=== PATIENT | female | born 1950 | race Hispanic/Latino ===

== ENCOUNTER 2020-09-28 18:26 | Outpatient (CLI) | payer MEDICARE, MEDICAID, SELFPAY ==
--- NOTE | ~2020-09-28 | XR_ITS ---
XR chest 2V DATE: 09/28/2020 18:49 INDICATION: Essential hypertension TECHNIQUE: PA and lateral views COMPARISON: 03/22/2018 two-view chest FINDINGS: Heart size is within normal range. Aortic calcification and tortuosity. No hilar or mediastinal enlargement. Minimal atelectasis or infiltrate in the left lower lung; otherw ise no pulmonary infiltrate or consolidation, pleural effusion or pulmonary vascular congestion or pn eumothorax. Dextroscoliosis of the thoracic spine. Diffuse osteopenia. IMPRESSION: Minimal infiltrate or atelectasis in the left lower lung; otherwise no active cardiopulmo nary disease Reviewed, dictated and finalized at location A. IMPRESSION: Minimal infiltrate or atelectasis in the left lower lung; otherwise no active cardiopulmonary disease
== END 2020-09-28 18:27 | disposition home or self-care (01) ==
LOC: ANHIMG 18:35
PROVIDERS: PCP Registered Nurse; Visit Provider Registered Nurse
DX: I10 Essential (primary) hypertension (principal); R91.8 Other nonspecific abnormal finding of lung field
CPT/HCPCS: 71046

== ENCOUNTER 2021-04-15 17:14 | Outpatient (CLI) | payer OTHER, SELFPAY ==
--- NOTE | ~2021-04-15 | US_ITS ---
EXAMINATION: US carotid duplex BI DATE: 04/15/2021 18:33 INDICATION: Carotid artery stenosis TECHNIQUE: Grayscale, color Doppler, and pulsed Doppler images of the cervical carotid arteries were obtained. The degree of vessel stenosis is placed in one of the following categories: normal, <50%, 5 0-69%, >=70% but less than near-occlusion, near-occlusion, or total occlusion. Note that percent sten osis relative to normal distal artery lumen diameter is indirectly measured from velocity measurement s as described by German, et al. Radiology 2003; [id number]:[id number]. COMPARISON: None. FINDINGS: RIGHT: The right common carotid artery (CCA) peak systolic velocity (PSV) is 63 cm/s. The right internal car otid artery (ICA) PSV is 107 cm/s. The right ICA end-diastolic velocity (EDV) is 23 cm/s. The right I CA/CCA PSV ratio is 1.7. Grayscale and color Doppler images yield an estimate of <50% diameter reduct ion from plaque in the ICA. The external carotid artery (ECA) PSV is 87 cm/s. There is antegrade flow in the right vertebral artery. LEFT: Stent is seen at the left common carotid artery extending into the proximal left internal carotid art onesimo The left CCA PSV is 54 cm/s. The left ICA PSV is 60 cm/s. The left ICA EDV is 21 cm/s. The left I CA/CCA PSV ratio is 1.1. Grayscale and color Doppler images yield an estimate of <50% diameter reduct ion from plaque in the ICA. The ECA PSV is 59 cm/s. There is antegrade flow in the left vertebral art onesimo. IMPRESSION: 1. <50% stenosis in the right internal carotid artery. 2. <50% stenosis in the stented left internal carotid artery. Reviewed, dictated and finalized at location H. R MATCHER
== END 2021-04-15 17:15 | disposition home or self-care (01) ==
LOC: ANHIMG 17:19
PROVIDERS: PCP Physician Assistant; Visit Provider Physician Assistant
DX: I65.23 Occlusion and stenosis of bilateral carotid arteries (principal)
CPT/HCPCS: 93880

== ENCOUNTER 2021-07-25 16:39 | Emergency (ER) | payer MEDICARE, MEDICAID, SELFPAY ==
[2021-07-25 16:52] VITALS: BP 179/89; PULSE 71; RESP 16; TEMP 36; O2SAT 100
--- NOTE | 2021-07-25 17:20 | PC.NURSE ---
pt left d/t wait time, didnt feel need to be here. encouraged to return if needed, pt agreeable
== END 2021-07-25 17:33 | disposition left against medical advice (07) ==
LOC: ANHED 17:29
PROVIDERS: PCP Physician Assistant
DX: I10 Essential (primary) hypertension (principal)
CPT/HCPCS: 99199

== ENCOUNTER 2021-07-31 17:55 | Outpatient (CLI) | payer MEDICARE, MEDICAID, SELFPAY ==
--- NOTE | ~2021-07-31 | XR_ITS ---
EXAMINATION: HAND-DEVORA ARTHRITIS 3+VIEWS DATE: 07/31/2021 18:20 INDICATION: Chronic bilateral hand pain, right greater than left. TECHNIQUE: Posteroanterior, lateral, and oblique views of the left and of the right hands as well as a ballcatchers view of both hands were obtained. COMPARISON: None. FINDINGS: Relatively symmetric pattern of polyarticular osteoarthritis of both hands, severe at the distal inte rphalangeal joints, moderate at the bilateral first carpometacarpal and at the right second and fifth and left second metacarpophalangeal joint and mild at the bilateral wrist, triscaphe and remaining m etacarpophalangeal and interphalangeal joints. Mild finger deformity right fifth distal interphalange al joint and mild radial angulation at the right third distal interphalangeal. No traumatic malalignm ent. No fracture. IMPRESSION: 1. Typical relatively symmetric pattern of polyarticular osteoarthritis at the bilateral hands and wr ists, severe at the distal interphalangeal joints. Reviewed, dictated and finalized at location B. IMPRESSION: 1. Typical relatively symmetric pattern of polyarticular osteoarthritis at the bilateral hands and wrists, severe at the distal interphalangeal joints.
== END 2021-07-31 17:56 | disposition home or self-care (01) ==
PROVIDERS: PCP Physician Assistant; Visit Provider Physician Assistant
DX: M79.641 Pain in right hand (principal); M19.042 Primary osteoarthritis, left hand; M19.041 Primary osteoarthritis, right hand
CPT/HCPCS: 73130

== ENCOUNTER 2021-10-09 18:12 | Outpatient (CLI) | payer MEDICARE, MEDICAID, SELFPAY ==
--- NOTE | ~2021-10-09 | XR_ITS ---
EXAM: XR knee RT 3V, XR knee LT 3V DATE: 10/09/2021 18:45 HISTORY: NO INJURY,CHRONIC PAIN THROUGHOUT RT KNEE . COMPARISON: None available. FINDINGS: Decreased mineralization. No fracture or dislocation. No lytic or blastic lesion. Moderate bilateral medial and mild bilateral lateral joint space narrowing. Bilateral mild patellar subluxati on. Mild-moderate tricompartmental osteophytosis, worse on the left. No erosion or periosteal change. Small bilateral knee joint effusions. 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 Reviewed, dictated and finalized at location K. 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
== END 2021-10-09 18:13 | disposition home or self-care (01) ==
PROVIDERS: PCP Physician Assistant; Visit Provider Physician Assistant
DX: M17.0 Bilateral primary osteoarthritis of knee (principal)
CPT/HCPCS: 73562

== ENCOUNTER 2022-07-14 18:19 | Outpatient (CLI) | payer MEDICARE, MEDICAID, SELFPAY ==
--- NOTE | ~2022-07-14 | XR_ITS ---
EXAM: XR hip BI wo pelvis DATE: 07/14/2022 18:40 HISTORY: BI HIP JOINT PAIN, CHRONIC PAIN . COMPARISON: None available. FINDINGS: Normal mineralization. No fracture or dislocation. No lytic or blastic lesion. Moderate na rrowing, subchondral sclerosis, and degenerative cyst formation in the right SI joint. The left SI luis int is normal. Mild osteitis pubis. Mild bilateral superior hip joint space narrowing. Degenerative c hanges in the lumbar spine. Minimal hip enthesopathy. No erosion or periosteal change. Soft tissues w ithin normal limits. IMPRESSION: Moderate right sacroiliitis. Mild bilateral hip osteoarthritis. Reviewed, dictated and finalized at location K.
== END 2022-07-14 18:20 | disposition home or self-care (01) ==
LOC: ANHIMG 18:24
PROVIDERS: PCP Physician Assistant
DX: M25.551 Pain in right hip (principal); M25.552 Pain in left hip; M46.1 Sacroiliitis, not elsewhere classified; M16.0 Bilateral primary osteoarthritis of hip
CPT/HCPCS: 73521

== ENCOUNTER 2023-07-27 16:17 | Outpatient (CLI) | payer MEDICARE, MEDICAID, SELFPAY ==
--- NOTE | ~2023-07-27 | MM_ITS ---
EXAMINATION: MM screening roselyn BI w evelyn HISTORY: Screening TECHNIQUE: Craniocaudal and mediolateral oblique 3-D tomosynthesis images were obtained and synthetic 2-D images were generated. CAD analysis was submitted and interpreted. COMPARISON: No prior mammogram is available for comparison at this institution. BREAST PARENCHYMAL COMPOSITION: There are scattered areas of fibroglandular density. FINDINGS: There is no evidence of suspicious mass, calcification, or architectural distortion to sugg est malignancy in either breast. There has been no suspicious interval change. IMPRESSION: 1. No mammographic evidence of malignancy. 2. Recommend routine screening mammography in one year. BI-RADS Category 1: Negative Reviewed, dictated and finalized at location B.
== END 2023-07-27 16:18 | disposition home or self-care (01) ==
PROVIDERS: PCP Physician Assistant; Visit Provider Physician Assistant
DX: Z12.31 Encounter for screening mammogram for malignant neoplasm of breast (principal)
CPT/HCPCS: 77063; 77067

== ENCOUNTER 2023-08-04 13:44 | Outpatient (CLI) | payer MEDICARE, MEDICAID, SELFPAY ==
--- NOTE | 2023-08-04 14:30 | NEURO_ITS ---
Impression: # Complains of numbness of fingers. Known diabetic. # Subtle evolving right Carpal Tunnel Syndrome. # No ulnar neuropathy. # Normal Needle/EMG exam. # Clinical correlation recommended. Nerve Conduction Studies Anti Sensory Summary Table Stim Site NR Peak (ms) P-T Amp (?V) Site1 Site2 Delta-P (ms) Dist (cm) Jimmy (m/s) Left Median Anti Sensory (2-3nd Digit) Wrist 2.7 59.0 Wrist 2-3nd Digit 2.7 14.0 52 Wrist 2.9 51.9 Wrist 2-3nd Digit 2.7 14.0 52 Right Median Anti Sensory (2-3nd Digit) Wrist 3.0 30.9 Wrist 2-3nd Digit 3.0 14.0 47 Wrist 3.0 37.2 Wrist 2-3nd Digit 3.0 14.0 47 Left Radial Anti Sensory (Base 1st Digit) Wrist 2.6 12.6 Wrist Base 1st Digit 2.6 0.0 Right Radial Anti Sensory (Base 1st Digit) Wrist 2.2 22.8 Wrist Base 1st Digit 2.2 0.0 Left Ulnar Anti Sensory (5th Digit) Wrist 2.8 39.8 Wrist 5th Digit 2.8 14.0 50 Right Ulnar Anti Sensory (5th Digit) Wrist 2.6 20.9 Wrist 5th Digit 2.6 14.0 54 Motor Summary Table Stim Site NR Onset (ms) O-P Amp (mV) Site1 Site2 Delta-0 (ms) Dist (cm) Jimmy (m/s) Left Median Motor (Abd Poll Brev) Wrist 4.1 2.4 Elbow Wrist 4.7 28.0 60 Elbow 8.8 2.1 Right Median Motor (Abd Poll Brev) Wrist 3.4 2.2 Elbow Wrist 4.5 26.0 58 Elbow 7.9 3.4 Left Ulnar Motor (Abd Dig Minimi) Wrist 2.5 3.1 A Elbow Wrist 4.9 28.0 57 A Elbow 7.4 2.7 Right Ulnar Motor (Abd Dig Minimi) Wrist 2.7 4.0 A Elbow Wrist 4.9 29.0 59 A Elbow 7.6 3.1 F Wave Studies NR F-Lat (ms) L-R F-Lat (ms) Left Median (Mrkrs) (Abd Poll Brev) 27.48 0.75 Right Median (Mrkrs) (Abd Poll Brev) 26.73 0.75 Left Ulnar (Mrkrs) (Abd Dig Min) 27.08 0.29 Right Ulnar (Mrkrs) (Abd Dig Min) 26.79 0.29 EMG Side Muscle Nerve Root Ins Act Fibs Amp Dur Recrt Comment Right 1stDorInt Ulnar C8-T1 Nml Nml Nml Nml Nml Right Ext Indicis Radial (Post Int) C7-8 Nml Nml Nml Nml Nml Right Ext Digitorum Radial (Post Int) C7-8 Nml Nml Nml Nml Nml Right BrachioRad Radial C5-6 Nml Nml Nml Nml Nml Right PronatorTeres Median C6-7 Nml Nml Nml Nml Nml Right Abd Poll Brev Median C8-T1 Nml Nml Nml Nml Nml Right ABD Dig Min Ulnar C8-T1 Nml Nml Nml Nml Nml Left 1stDorInt Ulnar C8-T1 Nml Nml Nml Nml Nml Left Ext Indicis Radial (Post Int) C7-8 Nml Nml Nml Nml Nml Left Ext Digitorum Radial (Post Int) C7-8 Nml Nml Nml Nml Nml Left BrachioRad Radial C5-6 Nml Nml Nml Nml Nml Left PronatorTeres Median C6-7 Nml Nml Nml Nml Nml Left Abd Poll Brev Median C8-T1 Nml Nml Nml Nml Nml Left ABD Dig Min Ulnar C8-T1 Nml Nml Nml Nml Nml MTDD
== END 2023-08-04 13:45 | disposition home or self-care (01) ==
LOC: ANHNEURO 14:16
PROVIDERS: PCP Physician Assistant
DX: Z73.6 Limitation of activities due to disability (principal); G56.01 Carpal tunnel syndrome, right upper limb
CPT/HCPCS: 95886; 95911